=== PATIENT | female | born 1950 | race Caucasian/White ===

== ENCOUNTER → 2017-09-15 | Outpatient (CLI) | payer MEDICARE, BC | LOC: WI 13:34 | PROVIDERS: ATTEND Physician Assistant | DX: Z12.31 Encounter for screening mammogram for malignant neoplasm of breast (principal) ==

== ENCOUNTER → 2018-06-13 | Outpatient (CLI) | payer MEDICARE, BC ==
--- NOTE | 2018-06-13 13:51 | WOMENS IMAGING REPORT ---
EXAM DESCRIPTION: BONE DENSITY HIP/SPINE COMPLETED DATE/TIME: 06/13/2018 1:28 pm REASON FOR STUDY: N95.9 UNSPECIFIED MENOPAUSAL AND PERIMENOPAUSAL DISORDER N95.9 UNSPECIFIED MENOPA USAL AND PERIMENOPAUSAL DISORDER COMPARISON: None. TECHNIQUE: Dual-Energy X-ray Absorptiometry (DEXA) of the AP Spine and Hip. LIMITATIONS: None. FINDINGS: LUMBAR SPINE: The bone mineral density (BMD) measured from L1-L4 in the AP projection correlates with a T-score of 0.5, which is normal as defined by the World Health Organization. HIP: The bone mineral density (BMD) measured in the left hip correlates with a T-score of -2.1, which is o steopenia as defined by the World Health Organization. IMPRESSION: 1. LUMBAR SPINE: NORMAL. 2. HIP: OSTEOPENIA. COMMENT: Spine values are considered less accurate due to scoliosis. The World Health Organization defines low BMD as follows: T-score: Normal: Greater than -1.0 Osteopenia: Between -1.0 and -2.5 Osteoporosis: Less than -2.5 without fractures Established osteoporosis: Less than -2.5 with fractures In general, you may wish to consider: Diagnosis Treatment Follow-up DEXA Normal BMD Prevention 2-3 years Osteopenia Prevention/Therapy 1-2 years Osteoporosis Therapy Yearly TECHNICAL DOCUMENTATION: JOB ID: [id number] [employer]- All Rights Reserved Reading location - IP/workstation name: [email or web address]
== END ==
LOC: WI 12:52
PROVIDERS: ATTEND Physician Assistant
DX: M85.88 Other specified disorders of bone density and structure, other site (principal); N95.9 Unspecified menopausal and perimenopausal disorder
CPT/HCPCS: 77080

== ENCOUNTER → 2018-07-07 | Outpatient (CLI) | payer MEDICARE, BC ==
--- NOTE | 2018-07-07 12:22 | RADIOLOGY REPORT (SQ) ---
EXAM DESCRIPTION: LUMBAR SPINE COMPLETE; SACRUM AND COCCYX COMPLETED DATE/TIME: 07/07/2018 12:11 pm REASON FOR STUDY: M51.36 OTHER INTERVERTEBRAL DISC DEGENERATION; S32.10XA UNSPECIFIED FRACTUR COMPARISON: None. FINDINGS: Five views of the lumbosacral spine: Limiting stool and bowel gas partially obscuring. Scoliotic. Osteopenic. Spondylosis. No gross fracture or bone lesion. Three views of the sacrum and coccyx: Limiting osteopenia. No gross fracture or bone lesion. TECHNICAL DOCUMENTATION: JOB ID: [id number] Reading location - IP/workstation name: [email or web address]
--- NOTE | 2018-07-07 12:22 | RADIOLOGY REPORT (SQ) ---
EXAM DESCRIPTION: LUMBAR SPINE COMPLETE; SACRUM AND COCCYX COMPLETED DATE/TIME: 07/07/2018 12:11 pm REASON FOR STUDY: M51.36 OTHER INTERVERTEBRAL DISC DEGENERATION; S32.10XA UNSPECIFIED FRACTUR COMPARISON: None. FINDINGS: Five views of the lumbosacral spine: Limiting stool and bowel gas partially obscuring. Scoliotic. Osteopenic. Spondylosis. No gross fracture or bone lesion. Three views of the sacrum and coccyx: Limiting osteopenia. No gross fracture or bone lesion. TECHNICAL DOCUMENTATION: JOB ID: [id number] Reading location - IP/workstation name: [email or web address]
== END ==
LOC: OD 11:24
PROVIDERS: ATTEND Physician Assistant
DX: M51.36 Other intervertebral disc degeneration, lumbar region (principal)
CPT/HCPCS: 72110; 72220

== ENCOUNTER 2019-01-08 03:35 | Inpatient (IN) | payer MEDICARE, BC ==
--- NOTE | 2019-01-08 03:41 | ER Document Report ---
ED General - General Chief Complaint: Breathing Difficulty Stated Complaint: DIFFICUTLY BREATHING Time Seen by Provider: 01/08/19 03:40 Primary Care Provider: CHIQUI MACHUCA PA-C [ALLIED HEALTH PROFESSIONAL] - Follow up as needed TRAVEL OUTSIDE OF THE [place] IN LAST 30 DAYS: No - HPI Patient complains to provider of: SOB Notes: patient reports SOB she came by EMS and was noted to be hypoxic into mid 70's with them she is not on home oxygen but does have a h/o copd and continues to smoke she is currently on cipro and has taken 3 days of prednisone prescribed by her pcp due to worsening cough she tells me her SOB has worsened significantly over last 1-2 days no leg swelling or h/o pe or dvt no fever or chills denies chest pain - Related Data Allergies/Adverse Reactions: latex Allergy (Verified 01/08/19 04:17) Penicillins Allergy (Verified 01/08/19 04:06) Sulfa (Sulfonamide Antibiotics) Allergy (Verified 01/08/19 04:06) Past Medical History - Social History Smoking Status: Current Every Day Smoker Family History: COPD Review of Systems - Review of Systems Constitutional: No symptoms reported EENT: No symptoms reported Cardiovascular: No symptoms reported Respiratory: Cough, Short of breath, Sputum, Wheezing Gastrointestinal: No symptoms reported Genitourinary: No symptoms reported Female Genitourinary: No symptoms reported Musculoskeletal: No symptoms reported Skin: No symptoms reported Hematologic/Lymphatic: No symptoms reported Neurological/Psychological: No symptoms reported Physical Exam - Vital signs Vitals: Resp Pulse Ox 23 H 92 01/08/19 03:46 01/08/19 03:46 Interpretation: Normal - General General appearance: Alert - HEENT Head: Normocephalic, Atraumatic Eyes: Normal Pupils: PERRL Mucous membranes: Dry Neck: Supple. No: Meningismus - Respiratory Respiratory status: Tachypnea Chest status: Nontender Breath sounds: Wheezing Chest palpation: Normal - Cardiovascular Rhythm: Tachycardia Heart sounds: Normal auscultation Murmur: No Normal capillary refill: Yes - Abdominal Inspection: Normal Distension: No distension Bowel sounds: Normal Tenderness: Nontender Organomegaly: No organomegaly - Back Back: Normal, Nontender - Extremities General upper extremity: Normal inspection, Nontender, Normal color, Normal ROM, Normal temperature General lower extremity: Normal inspection, Nontender, Normal color, Normal ROM, Normal temperature, Normal weight bearing. No: Violeta's sign - Neurological Neuro grossly intact: Yes Cognition: Normal Orientation: AAOx4 [place] Coma Scale Eye Opening: Spontaneous [place] Coma Scale Verbal: Oriented [place] Coma Scale Motor: Obeys Commands [place] Coma Scale Total: 15 Speech: Normal Motor strength normal: LUE, RUE, LLE, RLE Sensory: Normal - Psychological Associated symptoms: Normal affect, Normal mood - Skin Skin Temperature: Warm Skin Moisture: Dry Skin Color: Normal Course - Re-evaluation Re-evalutation: 01/08/19 03:57 patient tachypneic and hypoxic will evaluate for PE with CTA steroids, duoneb ordered upon initial eval on 2L NC to maintain a sat >90 01/08/19 06:00 EKG w/ T wave changes but criteria not met for STEMI (only 1 lead, V2, with <2mm elevation and appears to be generated by baseline wander) -> no chest pain CXR clear wbc and lactic normal doubt respiratory infection nt-probnp elevated but no edema on cxr CTA pending given hypoxia will sign out to Dr Gilbert to follow up on CTA and have patient admitted to hospital 01/08/19 06:02 - Vital Signs Vital signs: Temp Pulse Resp BP Pulse Ox 98.2 F 18 156/78 H 91 L 01/08/19 04:07 01/08/19 05:00 01/08/19 04:00 01/08/19 05:00 - Laboratory Result Diagrams: 01/08/19 02:58 01/08/19 02:58 Laboratory results interpreted by me: 01/08/19 01/08/19 01/08/19 02:58 02:58 02:58 RDW 14.9 H Lymph % (Auto) 12.5 L Seg Neutrophils % 78.1 H ABG pO2 ABG HCO3 ABG Total CO2 Sodium 130.0 L Chloride 87 L Carbon Dioxide 33 H Lactic Acid AST 37 H NT-Pro-B Natriuret Pep 2040 H Lipase 16.5 L 01/08/19 01/08/19 05:08 05:19 RDW Lymph % (Auto) Seg Neutrophils % ABG pO2 69.4 L ABG HCO3 29.0 H ABG Total CO2 30.4 H Sodium Chloride Carbon Dioxide Lactic Acid 0.5 L AST NT-Pro-B Natriuret Pep Lipase - Diagnostic Test Radiology reviewed: Image reviewed, Reports reviewed - EKG Interpretation by Me Additional EKG results interpreted by me: 01/08/19 06:01 sinus tachycardia, rate of 104, left atrial abnormality, abnormal T waves in II, III, avF and V3 - V6 V2 with mild elevation (<2mm) Critical Care Note - Critical Care Note Total time excluding time spent on procedures (mins): 36 Comments: hypoxic respiratory failure requiring nasal cannula supplementation and evaluation for pna, acs, PE. At risk for decompensation requiring advanced airway intervention Discharge - Discharge Clinical Impression: Hypoxia, Elevated blood pressure reading COPD (chronic obstructive pulmonary disease) Qualifiers: COPD type: COPD with acute exacerbation Qualified Code(s): J44.1 - Chronic obstructive pulmonary disease with (acute) exacerbation Condition: Stable Disposition: ADMITTED INPATIENT Admitting Provider: hospitalist Unit Admitted: IMCU Referrals: CHIQUI MACHUCA PA-C [ALLIED HEALTH PROFESSIONAL] - Follow up as needed
[2019-01-08] MEDS ORDERED: IPRATROPIUM/ALBUTEROL 0.5-2.5 MG/3 ML AMPUL NEB ONE (03:52)
[2019-01-08] MEDS ORDERED: METHYLPREDNISOLONE INJ 125 MG/2 ML SDV IV ONE (03:53)
[2019-01-08 04:05] LABS: ABSOLUTE LYMPHOCYTES (AUTO) 0.7 10^3/uL (0.5-4.7); HEMATOCRIT 44.6 % (36.0-47.0); MEAN CORPUSCULAR VOLUME 95 fl (80-97); RED BLOOD COUNT 4.68 10^6/uL (3.72-5.28); RED CELL DISTRIBUTION WIDTH 14.9 % (11.5-14.0); TOTAL CELLS COUNTED % (AUTO) 100 %
[2019-01-08 04:09] LABS: ABSOLUTE MONOCYTES (AUTO) 0.4 10^3/uL (0.1-1.4); ABSOLUTE NEUT (AUTO) 4.2 10^3/uL (1.7-8.2); BASOPHILS % (AUTO) 0.6 % (0-2); EOSINOPHILS % (AUTO) 0.9 % (0-6); HEMOGLOBIN 14.9 g/dL (12.0-15.5); LYMPHOCYTES % (AUTO) 12.5 % (13-45); MEAN CORPUSCULAR HEMOGLOBIN 31.8 pg (27.0-33.4); MEAN CORPUSCULAR HGB CONC 33.3 g/dL (32.0-36.0); MONOCYTES % (AUTO) 7.9 % (3-13); PLATELET COUNT 275 10^3/uL (150-450); SEGMENTED NEUTROPHILS % (AUTO) 78.1 % (42-78); WHITE BLOOD COUNT 5.4 10^3/uL (4.0-10.5)
[2019-01-08 04:22] LABS: ALBUMIN 4.4 g/dL (3.5-5.0); ALKALINE PHOSPHATASE 62 U/L (38-126); ANION GAP 10 (5-19); ASPARTATE AMINO TRANSFERASE 37 U/L (14-36); BILIRUBIN,DIRECT 0.3 mg/dL (0.0-0.4); BILIRUBIN,TOTAL 0.3 mg/dL (0.2-1.3); BLOOD UREA NITROGEN 11 mg/dL (7-20); CALCIUM 9.7 mg/dL (8.4-10.2); CARBON DIOXIDE 33 mmol/L (22-30); CHLORIDE 87 mmol/L (98-107); GLUCOSE 95 mg/dL (75-110); POTASSIUM 4.3 mmol/L (3.6-5.0); TOTAL PROTEIN 7.1 g/dL (6.3-8.2)
[2019-01-08 04:34] LABS: TROPONIN I 0.017 ng/mL
--- NOTE | 2019-01-08 04:42 | RADIOLOGY REPORT (SQ) ---
CLINICAL HISTORY: cough COMPARISON: None. TECHNIQUE: XR CHEST 1 VIEW 01/08/2019 12:00 AM CDT FINDINGS: Cardiac silhouette is normal in size. Lungs are clear without consolidation, atelectasis, mass or edema. There is no pleural effusion. There is no pneumothorax. There are no acute osseous findings. There are surgical clips in right axilla. IMPRESSION: Clear lungs.
[2019-01-08 05:22] LABS: ARTERIAL BLOOD BASE EXCESS 3.9 mmol/L; ARTERIAL BLOOD H2CO3 1.35 mmol/L (1.05-1.35); ARTERIAL BLOOD O2 SATURATION 94.2 % (94-98); ARTERIAL BLOOD PH 7.43 (7.35-7.45); ARTERIAL BLOOD PO2 69.4 mmHg (80-100); ARTERIAL BLOOD TOTAL CO2 30.4 mmol/L (21-25)
[2019-01-08 05:23] LABS: ARTERIAL BLOOD FIO2 RA
--- NOTE | 2019-01-08 07:05 | RADIOLOGY REPORT (SQ) ---
EXAM: CT chest angiography with intravenous contrast CLINICAL DATA: 68-year-old female, hypoxic. TECHNICAL DATA: Following the administration of intravenous contrast, multiple high-resolution axial images of the chest were performed followed by sagittal and coronal reconstructed images. Coronal oblique MIP images were also performed. The CT study is performed according to ALARA (as low as reasonably achievable) or ALARA/IMAGE GENTLY, with automatic adjustment of mA and/or kV according to patient size. Performed on: 01/08/2019 at 6:08 AM COMPARISONS: None FINDINGS: There is satisfactory visualization and contrast opacification of pulmonary arteries. No definite intra-arterial filling defects are identified to suggest acute or chronic pulmonary embolism. The thoracic aorta is normal in caliber and contour without evidence of aneurysm or dissection. There are atherosclerotic calcifications along the thoracic aorta and to a lesser degree the coronary arteries. The lungs are well expanded. There is chronic fibrosis within the anterior inferior right upper lobe and anterior right middle lobe likely related to prior radiation. There is a small parenchymal opacity in the posterior right lower lobe and minimal parenchymal opacification in the anterior left upper lobe which may be related to additional fibrosis. The lungs are otherwise grossly clear. There are no pleural effusions. There is no pneumothorax. The patient is status post right mastectomy. There are surgical clips in the right axilla. There is a coarse calcification along the anterolateral aspect of the right 4th rib. There is very mild deformity of the anterolateral right 3rd rib. The heart is normal in size. There is no pericardial effusion. There is a prominent precarinal lymph node measuring approximately 2.4 x 1.2 cm in cross-sectional diameter. Otherwise, no significant lymphadenopathy is identified. No acute osseous abnormality is identified. There are mild degenerative changes along the thoracic spine. The visualized upper abdominal structures reveal decreased attenuation of the liver which can be seen with fatty infiltration. There is a coarse calcification within the dome of the liver. There is scoliosis of the thoracolumbar spine. IMPRESSION: 1. No CT evidence to suggest acute or chronic pulmonary embolism, aortic aneurysm or aortic dissection. 2. Remote right mastectomy with fibrotic changes in the lungs as described above. 3. Prominent nonspecific precarinal lymph node measuring approximately 2.4 x 1.2 cm in cross-sectional diameter.
--- NOTE | 2019-01-08 07:40 | ER Document Report ---
ED Respiratory Problem - General Chief Complaint: Shortness Of Breath Stated Complaint: DIFFICUTLY BREATHING Time Seen by Provider: 01/08/19 03:40 Primary Care Provider: CHIQUI MACHUCA PA-C [ALLIED HEALTH PROFESSIONAL] - Follow up as needed Notes: Pt signed out to me at shift change by Dr Carney --elderly female COPD. Patient has been on Cipro and prednisone by primary care for the last 3 to 4 days and has not been getting any better. Cold-like symptoms. TRAVEL OUTSIDE OF THE [place] IN LAST 30 DAYS: No - Related Data Allergies/Adverse Reactions: latex Allergy (Verified 01/08/19 04:17) Penicillins Allergy (Verified 01/08/19 04:06) Sulfa (Sulfonamide Antibiotics) Allergy (Verified 01/08/19 04:06) Past Medical History - Social History Smoking Status: Current Every Day Smoker Family History: COPD Patient has suicidal ideation: No Patient has homicidal ideation: No Past Surgical History: Reports: Hx Breast Surgery - right mastectomy Physical Exam - Vital signs Vitals: Resp Pulse Ox 23 H 92 01/08/19 03:46 01/08/19 03:46 - Notes Notes: Repeat exam ointment in the beginning of my shift frail elderly female still has some wheezing present. Not using accessory muscle use is at this time Course - Re-evaluation Re-evalutation: 01/08/19 07:38 Patient was signed out to me at shift change pending CTA. CTA is negative for pulmonary embolism. The patient is not on home oxygen. But requires 3 L of oxygen to maintain sats above 90. The patient is failed outpatient treatment she has had Cipro and prednisone by primary care but is continued to get worse. Tachycardia has nearly resolved. She is doing better however she still has oxygen requirement will require hospitalization for continued aerosol treatment steroids and pulmonary toilet. EKG has what I believe is chronic T wave inversion but I do not have an old EKG immediately available for comparison. There is likely some global demand ischemic findings due to the patient's sats in the 70s due to COPD exacerbation. I spoke with the hospitalist service to hospitalize the patient for further care. - Vital Signs Vital signs: Temp Pulse Resp BP Pulse Ox 98.2 F 21 H 161/78 H 94 01/08/19 04:07 01/08/19 07:15 01/08/19 06:26 01/08/19 06:26 - Laboratory Result Diagrams: 01/08/19 02:58 01/08/19 02:58 Laboratory results interpreted by me: 01/08/19 01/08/19 01/08/19 02:58 02:58 02:58 RDW 14.9 H Lymph % (Auto) 12.5 L Seg Neutrophils % 78.1 H ABG pO2 ABG HCO3 ABG Total CO2 Sodium 130.0 L Chloride 87 L Carbon Dioxide 33 H Lactic Acid AST 37 H NT-Pro-B Natriuret Pep 2040 H Lipase 16.5 L 01/08/19 01/08/19 05:08 05:19 RDW Lymph % (Auto) Seg Neutrophils % ABG pO2 69.4 L ABG HCO3 29.0 H ABG Total CO2 30.4 H Sodium Chloride Carbon Dioxide Lactic Acid 0.5 L AST NT-Pro-B Natriuret Pep Lipase Critical Care Note - Critical Care Note Total time excluding time spent on procedures (mins): 31 Discharge - Discharge Clinical Impression: Hypoxia, Elevated blood pressure reading COPD (chronic obstructive pulmonary disease) Qualifiers: COPD type: COPD with acute exacerbation Qualified Code(s): J44.1 - Chronic obstructive pulmonary disease with (acute) exacerbation Condition: Stable Disposition: ADMITTED INPATIENT Admitting Provider: Christos (Hospitalist) Unit Admitted: Telemetry Referrals: CHIQUI MACHUCA PA-C [ALLIED HEALTH PROFESSIONAL] - Follow up as needed
[2019-01-08] MEDS ORDERED: ACETAMINOPHEN 325 MG TABLET PO PRN (08:51)
[2019-01-08] MEDS ORDERED: OXYCODONE-ACETAMINOPHEN 5-325 MG TABLET PO PRN (08:51)
[2019-01-08] MEDS ORDERED: ONDANSETRON 4 MG TAB.RAPDIS PO PRN (08:51)
[2019-01-08] MEDS ORDERED: MAG HYDROX/AL HYDROX/SIMETH SUSP 30 ML UDCUP PO PRN (08:51)
[2019-01-08] MEDS ORDERED: ONDANSETRON HCL INJ/PF 4 MG/2 ML SDV IV PRN (08:51)
[2019-01-08] MEDS ORDERED: ZOLPIDEM TARTRATE 5 MG TABLET PO PRN (08:51)
[2019-01-08] MEDS: ENOXAPARIN SODIUM INJ 40 MG/0.4 ML DISP.SYRIN SUBCUT SCH (10:16)
[2019-01-08] MEDS: FAMOTIDINE 20 MG TABLET PO SCH ×2 (10:19→23:31)
[2019-01-08] MEDS ORDERED: CYCLOBENZAPRINE HCL 10 MG TABLET PO PRN (15:29)
[2019-01-08] MEDS ORDERED: ALBUTEROL SULFATE HFA (90 MCG/PUFF) 200 PUFF/8.5 GM MDI IH PRN (15:29)
[2019-01-08] MEDS: NAPROXEN 250 MG TABLET PO SCH (17:34)
[2019-01-08] MEDS: GABAPENTIN 300 MG CAPSULE PO SCH (17:35)
[2019-01-08] MEDS: LORAZEPAM 0.5 MG TABLET PO SCH ×2 (17:36→23:22)
[2019-01-08] MEDS: OXYCODONE-ACETAMINOPHEN 5-325 MG TABLET PO SCH ×2 (17:36→23:33)
[2019-01-08] MEDS: OXYCODONE HCL IR 5 MG TABLET PO SCH ×2 (17:37→23:32)
--- NOTE | 2019-01-08 17:56 | PDOC H&P ---
History of Present Illness Admission Date/PCP: 01/08/19 07:52 BAKARI LOMAS PA-C History of Present Illness: JOLIE GARCIA is a 68 year old female was admitted through the emergency r oom for shortness of breath. Patient states that she has had COPD for about 2 years and continues to smoke cigarettes, anywhere from a half a pack to a pack per day. Daughter tells me she has been taking pain medications now for many years, for chronic back pain. Recently in the last week to 10 days she was put on Cipro for sinus infection. She says that for the last few days she has been more short of breath. About 20 years ago she was diagnosed with breast cancer and had a right mastectomy.. Patient states she is a "DNR" Is now admitted for COPD exacerbation Past Medical History Pulmonary Medical History: Reports: Chronic Obstructive Pulmonary Disease (COPD) Malignancy Medical History: Reports: Breast Cancer Past Surgical History Past Surgical History: Reports: Mastectomy - Right Social History Smoking Status: Unknown if Ever Smoked Family History Family History: COPD Parental Family History Reviewed: No Children Family History Reviewed: No Sibling(s) Family History Reviewed.: No Medication/Allergy Home Medications: Albuterol Sulfate [Proair Hfa Inhalation Aerosol 8.5 gm Mdi] 2 puff IH Q4 PRN 01/08/19 Budesonide/Formoterol Fumarate [Symbicort Hfa 160-4.5 Mcg Inhaler 6 gm] 1 puff IH Q12 01/08/19 Ciprofloxacin HCl [Cipro 500 mg Tablet] 500 mg PO BID 01/08/19 Cyclobenzaprine HCl [Flexeril 10 mg Tablet] 10 mg PO TIDP PRN 01/08/19 Gabapentin [Neurontin 300 mg Capsule] 300 mg PO QAM 01/08/19 Gabapentin [Neurontin 300 mg Capsule] 600 mg PO QPM 01/08/19 Levothyroxine Sodium [Synthroid 0.088 mg Tablet] 88 mcg PO DAILY 01/08/19 Lisinopril [Prinivil] 20 mg PO DAILY 01/08/19 Lorazepam [Ativan 0.5 mg Tablet] 0.5 mg PO QID 01/08/19 Naproxen 500 mg PO BID 01/08/19 Omeprazole 20 mg PO DAILY 01/08/19 Oxycodone HCl/Acetaminophen [Percocet 10-325 Mg Tablet] 1 each PO QID 01/08/19 Pravastatin Sodium [Pravachol] 80 mg PO DAILY 01/08/19 Trazodone HCl [Desyrel 50 mg Tablet] 50 mg PO QHS 01/08/19 Valacyclovir HCl [Valacyclovir] 1,000 mg PO Q12 01/08/19 Allergies/Adverse Reactions: latex Allergy (Verified 01/08/19 04:17) Penicillins Allergy (Verified 01/08/19 04:06) Sulfa (Sulfonamide Antibiotics) Allergy (Verified 01/08/19 04:06) Review of Systems Constitutional: ABSENT: chills, fever(s), headache(s), weight gain, weight loss Respiratory: PRESENT: dyspnea Gastrointestinal: ABSENT: abdominal pain, constipation, diarrhea, hematemesis, hematochezia, nausea, vomiting Neurological: ABSENT: abnormal gait, abnormal speech, confusion, dizziness, focal weakness, syncope Psychiatric: ABSENT: anxiety, depression, homidical ideation, suicidal ideation Physical Exam Vital Signs: Temp Pulse Resp BP Pulse Ox 99.2 F 120 H 16 149/89 H 97 01/08/19 15:09 01/08/19 15:09 01/08/19 15:09 01/08/19 15:09 01/08/19 15:09 Intake & Output 01/07/19 01/08/19 01/09/19 06:59 06:59 06:59 Intake Total 440 Output Total 1500 Balance -1060 Weight 50.3 kg 50.3 kg General appearance: PRESENT: no acute distress Respiratory exam: PRESENT: rales, wheezes Cardiovascular exam: PRESENT: RRR. ABSENT: diastolic murmur, rubs, systolic murmur Neurological exam: PRESENT: alert, awake, oriented to person, oriented to place, oriented to time, oriented to situation, CN II-XII grossly intact. ABSENT: motor sensory deficit Psychiatric exam: PRESENT: appropriate affect, normal mood. ABSENT: homicidal ideation, suicidal ideation Results Laboratory Results: 01/08/19 02:58 01/08/19 02:58 01/08/19 01/08/19 01/08/19 02:58 02:58 02:58 WBC 5.4 RBC 4.68 Hgb 14.9 Hct 44.6 MCV 95 MCH 31.8 MCHC 33.3 RDW 14.9 H Plt Count 275 Seg Neutrophils % 78.1 H Carbonic Acid HCO3/H2CO3 Ratio ABG pH ABG pCO2 ABG pO2 ABG HCO3 ABG O2 Saturation ABG Base Excess FiO2 Sodium 130.0 L Potassium 4.3 Chloride 87 L Carbon Dioxide 33 H Anion Gap 10 BUN 11 Creatinine 0.60 Est GFR ( Amer) > 60 Glucose 95 Lactic Acid Calcium 9.7 Total Bilirubin 0.3 AST 37 H Alkaline Phosphatase 62 Total Protein 7.1 Albumin 4.4 Lipase 16.5 L Free T4 1.50 01/08/19 01/08/19 05:08 05:19 WBC RBC Hgb Hct MCV MCH MCHC RDW Plt Count Seg Neutrophils % Carbonic Acid 1.35 HCO3/H2CO3 Ratio 21:1 ABG pH 7.43 ABG pCO2 45.0 ABG pO2 69.4 L ABG HCO3 29.0 H ABG O2 Saturation 94.2 ABG Base Excess 3.9 FiO2 RA Sodium Potassium Chloride Carbon Dioxide Anion Gap BUN Creatinine Est GFR ( Amer) Glucose Lactic Acid 0.5 L Calcium Total Bilirubin AST Alkaline Phosphatase Total Protein Albumin Lipase Free T4 01/08/19 01/08/19 02:58 06:37 Troponin I 0.017 0.016 NT-Pro-B Natriuret Pep 2040 H Impressions: Chest X-Ray 01/08/19 00:00 IMPRESSION: Clear lungs. Chest/Abdomen CTA 01/08/19 00:00 IMPRESSION: 1. No CT evidence to suggest acute or chronic pulmonary embolism, aortic aneurysm or aortic dissection. 2. Remote right mastectomy with fibrotic changes in the lungs as described above. 3. Prominent nonspecific precarinal lymph node measuring approximately 2.4 x 1.2 cm in cross-sectional diameter. Assessment and Plan - Diagnosis (1) Breast cancer Is this a current diagnosis for this admission?: Yes Plan: Patient had a right mastectomy in 1994 (2) Tobacco abuse Is this a current diagnosis for this admission?: Yes Plan: Patient smokes anywhere from a half a pack to a pack of cigarettes per day (3) Chronic pain Is this a current diagnosis for this admission?: Yes Plan: Patient has been on chronic pain medication for over 20 years for back pain. (4) COPD (chronic obstructive pulmonary disease) Qualifiers: COPD type: COPD with acute exacerbation Qualified Code(s): J44.1 - Chronic obstructive pulmonary disease with (acute) exacerbation Is this a current diagnosis for this admission?: Yes Plan: Patient will be placed on IV steroids as well as IV antibiotics, pulmonary toiletry as well. (5) Elevated blood pressure reading Is this a current diagnosis for this admission?: Yes Plan: Admission blood pressure 167/83 it is come down now to 149/89 ,patient is on Prinivil 20 mg daily (6) Hypoxia Is this a current diagnosis for this admission?: Yes Plan: Patient is on 4 L nasal cannula O2 sat 97%. Patient does not appear to be in respiratory distress - Plan Summary Summary: Give patient IV steroids every 8 hours give patient IV antibiotics and try to improve her COPD exacerbation. - Time Time Spent with patient: 35 or more minutes
--- NOTE | 2019-01-08 17:58 | EKG REPORT ---
SEVERITY:- ABNORMAL ECG - SINUS TACHYCARDIA LEFT ATRIAL ABNORMALITY ABNORMAL T, CONSIDER ISCHEMIA, DIFFUSE LEADS : Confirmed by: Farzaneh Fischer 08-Jan-2019 17:57:57
[2019-01-08] MEDS ORDERED: (PENDING PHARMACY ID) (Oxycodone Hcl/Acetaminophen [Percocet 10-325 Mg Tablet] 1 EACH) PO SCH (18:00)
[2019-01-08] MEDS ORDERED: (PENDING PHARMACY ID) (Naproxen [Naproxen] 500 MG) PO SCH (18:00)
[2019-01-08] MEDS: AZITHROMYCIN 500 MG in DEXTROSE 5%-WATER 250 ML IV SCH (21:39)
[2019-01-08] MEDS ORDERED: (PENDING PHARMACY ID) (Valacyclovir Hcl [Valacyclovir] 1,000 MG) PO SCH (22:00)
[2019-01-08] MEDS ORDERED: (PENDING PHARMACY ID) (Budesonide/Formoterol Fumarate 1 PUFF) IH SCH (22:00)
[2019-01-08] MEDS: METHYLPREDNISOLONE INJ 40 MG/1 ML SDV IV SCH (23:29)
[2019-01-08] MEDS: ATORVASTATIN CALCIUM 20 MG TABLET PO SCH (23:30)
[2019-01-08] MEDS: VALACYCLOVIR HCL 500 MG TABLET PO SCH (23:30)
[2019-01-08] MEDS: TRAZODONE HCL 50 MG TABLET PO SCH (23:31)
--- NOTE | 2019-01-09 00:43 | RADIOLOGY REPORT (SQ) ---
EXAM: CT head without IV contrast CLINICAL DATA: hypoxia, confusion TECHNICAL DATA: Multiple axial CT images of the brain were performed followed by sagittal and coronal reconstructed images. The CT study is performed according to ALARA (as low as reasonably achievable) or ALARA/IMAGE GENTLY, with automatic adjustment of mA and/or kV according to patient size. Performed on: 01/08/2019 at 8:28 PM Comparisons: None. FINDINGS: There is no evidence of mass, acute mass effect or midline shift. There are no acute extra-axial fluid collections. There is no evidence of acute intracranial hemorrhage. The cerebral sulci and ventricles are prominent consistent with mild cerebral volume loss. There are scattered areas of decreased attenuation within the subcortical and periventricular white matter most likely due to mild chronic microangiopathy. There is no significant mucosal thickening of the paranasal sinuses. The mastoid air cells are clear. The orbital contents are grossly unremarkable. No acute osseous abnormalities are identified. No focal soft tissue abnormalities are identified. IMPRESSION: 1. There is no evidence of acute intracranial pathology. 2. Mild cerebral volume loss with findings compatible with mild chronic microangiopathy.
[2019-01-09] MEDS: METHYLPREDNISOLONE INJ 40 MG/1 ML SDV IV SCH ×3 (06:27→21:42)
[2019-01-09] MEDS: OXYCODONE-ACETAMINOPHEN 5-325 MG TABLET PO SCH ×4 (06:27→23:56)
[2019-01-09] MEDS: OXYCODONE HCL IR 5 MG TABLET PO SCH ×4 (06:28→23:57)
[2019-01-09 07:49] LABS: HEMATOCRIT 45.8 % (36.0-47.0); HEMOGLOBIN 14.9 g/dL (12.0-15.5); MEAN CORPUSCULAR HGB CONC 32.6 g/dL (32.0-36.0); MEAN CORPUSCULAR VOLUME 95 fl (80-97); PLATELET COUNT 262 10^3/uL (150-450); RED BLOOD COUNT 4.82 10^6/uL (3.72-5.28); RED CELL DISTRIBUTION WIDTH 15.2 % (11.5-14.0)
[2019-01-09 08:11] LABS: ABSOLUTE LYMPHOCYTES# (MANUAL) 0.6 10^3/uL (0.5-4.7); ABSOLUTE MONOCYTES # (MANUAL) 0.3 10^3/uL (0.1-1.4); BASOPHILS % (MANUAL) 0 % (0-2); EOSINOPHILS % (MANUAL) 0 % (0-6); LYMPHOCYTES % (MANUAL) 10 % (13-45); MONOCYTES % (MANUAL) 5 % (3-13); SEGMENTED NEUTROPHILS % (MAN) 85 % (42-78); TOTAL CELLS COUNTED 100
[2019-01-09 08:12] LABS: ANISOCYTOSIS SLIGHT; PLATELET COMMENT ADEQUATE; PLATELET LARGE PRESENT
[2019-01-09 08:14] LABS: OVALOCYTES SLIGHT
[2019-01-09] MEDS: IPRATROPIUM/ALBUTEROL 0.5-2.5 MG/3 ML AMPUL NEB PRN ×3 (08:22→21:14)
[2019-01-09] MEDS: LEVOTHYROXINE SODIUM 0.088 MG TABLET PO SCH (09:52)
[2019-01-09] MEDS: VALACYCLOVIR HCL 500 MG TABLET PO SCH ×2 (09:52→21:39)
[2019-01-09] MEDS: GABAPENTIN 300 MG CAPSULE PO SCH ×2 (09:52→17:44)
[2019-01-09] MEDS: FAMOTIDINE 20 MG TABLET PO SCH ×2 (09:52→21:39)
[2019-01-09] MEDS: NAPROXEN 250 MG TABLET PO SCH ×2 (09:52→17:44)
[2019-01-09] MEDS: LISINOPRIL 10 MG TABLET PO SCH (09:52)
[2019-01-09] MEDS: FLUTICASONE/VILANTEROL 200-25 MCG/DOSE IH SCH (09:53)
[2019-01-09] MEDS: LORAZEPAM 0.5 MG TABLET PO SCH ×4 (09:54→21:40)
[2019-01-09] MEDS: ENOXAPARIN SODIUM INJ 40 MG/0.4 ML DISP.SYRIN SUBCUT SCH (09:54)
--- NOTE | 2019-01-09 09:58 | PDOC PROGRESS REPORT ---
Subjective Progress Note for:: 01/09/19 Subjective:: 01/09/2019 68-year-old female who was admitted yesterday through the emergency room for COPD exacerbation. No obvious evidence of pneumonia on CT scan of the chest. Nodule appears to be old according to the patient. Patient will be treated with nebulizers steroids and pulmonary toiletry. Also prophylactic antibiotics Reason For Visit: COPDE EXACERBATION,TOBACCO ABUSE,HYPOTHYRODISM Physical Exam Vital Signs: Temp Pulse Resp BP Pulse Ox 98.4 F 91 16 159/84 H 92 01/09/19 07:58 01/09/19 08:22 01/09/19 08:22 01/09/19 07:58 01/09/19 08:22 Intake & Output 01/08/19 01/09/19 01/10/19 06:59 06:59 06:59 Intake Total 1290 Output Total 1700 Balance -410 Weight 50.3 kg 51.2 kg General appearance: PRESENT: no acute distress, other - Acute in full sentences in no respiratory distress today Respiratory exam: PRESENT: crackles - Both bases, rales Cardiovascular exam: PRESENT: RRR. ABSENT: diastolic murmur, rubs, systolic murmur Neurological exam: PRESENT: alert, awake, oriented to person, oriented to place, oriented to time, oriented to situation, CN II-XII grossly intact, other - Patient fully alert no evidence of dementia. ABSENT: motor sensory deficit Psychiatric exam: PRESENT: appropriate affect, normal mood. ABSENT: homicidal ideation, suicidal ideation Results Laboratory Results: 01/09/19 07:05 01/08/19 01/09/19 02:58 07:05 WBC 6.0 RBC 4.82 Hgb 14.9 Hct 45.8 MCV 95 MCH 31.0 MCHC 32.6 RDW 15.2 H Plt Count 262 Seg Neutrophils % Not Reportable Free T4 1.50 01/08/19 01/08/19 02:58 06:37 Troponin I 0.017 0.016 NT-Pro-B Natriuret Pep 2040 H Impressions: Chest X-Ray 01/08/19 00:00 IMPRESSION: Clear lungs. Chest/Abdomen CTA 01/08/19 00:00 IMPRESSION: 1. No CT evidence to suggest acute or chronic pulmonary embolism, aortic aneurysm or aortic dissection. 2. Remote right mastectomy with fibrotic changes in the lungs as described above. 3. Prominent nonspecific precarinal lymph node measuring approximately 2.4 x 1.2 cm in cross-sectional diameter. Head CT 01/08/19 00:00 IMPRESSION: 1. There is no evidence of acute intracranial pathology. 2. Mild cerebral volume loss with findings compatible with mild chronic microangiopathy. Assessment and Plan - Diagnosis (1) Breast cancer Is this a current diagnosis for this admission?: Yes Plan: Patient had a right mastectomy in 199401/09/2019 states she was told that she does have a pulmonary nodule secondary to her mastectomy secondary to radiation (2) Tobacco abuse Is this a current diagnosis for this admission?: Yes Plan: Patient smokes anywhere from a half a pack to a pack of cigarettes per day 01/09/2019 requested a NicoDerm patch we will start her on 14 mg daily Daughter states patient smokes more than half a pack per day (3) Chronic pain Is this a current diagnosis for this admission?: Yes Plan: Patient has been on chronic pain medication for over 20 years for back pain. 01/09/2019 patient does not complain of any pain today (4) COPD (chronic obstructive pulmonary disease) Qualifiers: COPD type: COPD with acute exacerbation Qualified Code(s): J44.1 - Chronic obstructive pulmonary disease with (acute) exacerbation Is this a current diagnosis for this admission?: Yes Plan: Patient will be placed on IV steroids as well as IV antibiotics, pulmonary toiletry as well. 01/09/2019 patient is using her nebulizer treatments every 4 hours as needed. She is stable no better no worse (5) Elevated blood pressure reading Is this a current diagnosis for this admission?: Yes Plan: Admission blood pressure 167/83 it is come down now to 149/89 ,patient is on Prinivil 20 mg daily. 01/09/2019 blood pressure this morning 159/84, will probably need to add another medication (6) Hypoxia Is this a current diagnosis for this admission?: Yes Plan: Patient is on 4 L nasal cannula O2 sat 97%. Patient does not appear to be in respiratory distress 01/09/2019 saturations are running in the high 90s on 4 L nasal cannula and will try to decrease this over the next several days - Plan Summary Summary: Give patient IV steroids every 8 hours give patient IV antibiotics and try to improve her COPD exacerbation. 01/09/2019 we will order the NicoDerm patch and MiraLAX every night per patient's request. Patient's daughter/caregiver slip in the room last night - Time Time Spent with patient: 25-34 minutes
[2019-01-09] MEDS ORDERED: (PENDING PHARMACY ID) (Lisinopril [Prinivil] 20 MG) PO SCH (10:00)
[2019-01-09] MEDS: NICOTINE 14 MG/24 HR PATCH.TD24 TD SCH (10:34)
[2019-01-09 14:18] LABS: CALCIUM 9.3 mg/dL (8.4-10.2)
[2019-01-09 14:19] LABS: ANION GAP 8 (5-19); BLOOD UREA NITROGEN 14 mg/dL (7-20); CARBON DIOXIDE 33 mmol/L (22-30); CHLORIDE 88 mmol/L (98-107); GLUCOSE 92 mg/dL (75-110); POTASSIUM 4.3 mmol/L (3.6-5.0)
[2019-01-09] MEDS: AZITHROMYCIN 500 MG in DEXTROSE 5%-WATER 250 ML IV SCH (17:44)
[2019-01-09] MEDS: POLYETHYLENE GLYCOL 3350 POWDER 17 GM/1 PACKET PO SCH (21:39)
[2019-01-09] MEDS: TRAZODONE HCL 50 MG TABLET PO SCH (21:40)
[2019-01-09] MEDS: ATORVASTATIN CALCIUM 20 MG TABLET PO SCH (21:40)
[2019-01-10] MEDS: IPRATROPIUM/ALBUTEROL 0.5-2.5 MG/3 ML AMPUL NEB PRN ×4 (01:46→19:42)
[2019-01-10] MEDS: METHYLPREDNISOLONE INJ 40 MG/1 ML SDV IV SCH ×3 (05:45→21:27)
[2019-01-10] MEDS: OXYCODONE-ACETAMINOPHEN 5-325 MG TABLET PO SCH ×3 (05:46→17:38)
[2019-01-10] MEDS: OXYCODONE HCL IR 5 MG TABLET PO SCH ×3 (05:46→17:30)
[2019-01-10] MEDS: LEVOTHYROXINE SODIUM 0.088 MG TABLET PO SCH (09:53)
[2019-01-10] MEDS: GABAPENTIN 300 MG CAPSULE PO SCH ×2 (09:53→17:38)
[2019-01-10] MEDS: FAMOTIDINE 20 MG TABLET PO SCH ×2 (09:53→21:28)
[2019-01-10] MEDS: NICOTINE 14 MG/24 HR PATCH.TD24 TD SCH (09:53)
[2019-01-10] MEDS: LISINOPRIL 10 MG TABLET PO SCH (09:53)
[2019-01-10] MEDS: LORAZEPAM 0.5 MG TABLET PO SCH ×4 (09:53→21:28)
[2019-01-10] MEDS: VALACYCLOVIR HCL 500 MG TABLET PO SCH ×2 (09:53→21:28)
[2019-01-10] MEDS: ENOXAPARIN SODIUM INJ 40 MG/0.4 ML DISP.SYRIN SUBCUT SCH (09:55)
[2019-01-10] MEDS: FLUTICASONE/VILANTEROL 200-25 MCG/DOSE IH SCH (09:56)
[2019-01-10] MEDS: NAPROXEN 250 MG TABLET PO SCH ×2 (09:56→18:00)
--- NOTE | 2019-01-10 13:25 | PDOC PROGRESS REPORT ---
Subjective Progress Note for:: 01/10/19 Subjective:: 01/09/2019 68-year-old female who was admitted yesterday through the emergency room for COPD exacerbation. No obvious evidence of pneumonia on CT scan of the chest. Nodule appears to be old according to the patient. Patient will be treated with nebulizers steroids and pulmonary toiletry. Also prophylactic antibiotics 01/10/2019 Patient states she is feeling much better less shortness of breath. Daughter in the room admits that she feels like her mother has improved since admission Reason For Visit: COPDE EXACERBATION,TOBACCO ABUSE,HYPOTHYRODISM Physical Exam Vital Signs: Temp Pulse Resp BP Pulse Ox 98.1 F 118 H 18 175/92 H 99 01/10/19 12:16 01/10/19 12:16 01/10/19 06:52 01/10/19 12:16 01/10/19 12:16 Intake & Output 01/09/19 01/10/19 01/11/19 06:59 06:59 06:59 Intake Total 1290 1982 Output Total 1700 Balance -410 1982 Weight 51.2 kg 51.7 kg General appearance: PRESENT: no acute distress Respiratory exam: PRESENT: rales, other - Both bases Cardiovascular exam: PRESENT: RRR. ABSENT: diastolic murmur, rubs, systolic murmur Neurological exam: PRESENT: alert, awake, oriented to person, oriented to place, oriented to time, oriented to situation, CN II-XII grossly intact. ABSENT: motor sensory deficit Psychiatric exam: PRESENT: appropriate affect, normal mood, other - Normal affect. ABSENT: homicidal ideation, suicidal ideation Results Laboratory Results: 01/09/19 07:05 01/09/19 11:52 01/09/19 11:52 Sodium 128.6 L Potassium 4.3 Chloride 88 L Carbon Dioxide 33 H Anion Gap 8 BUN 14 Creatinine 0.53 Est GFR ( Amer) > 60 Glucose 92 Calcium 9.3 01/08/19 01/08/19 02:58 06:37 Troponin I 0.017 0.016 NT-Pro-B Natriuret Pep 2040 H Impressions: Chest X-Ray 01/08/19 00:00 IMPRESSION: Clear lungs. Chest/Abdomen CTA 01/08/19 00:00 IMPRESSION: 1. No CT evidence to suggest acute or chronic pulmonary embolism, aortic aneurysm or aortic dissection. 2. Remote right mastectomy with fibrotic changes in the lungs as described above. 3. Prominent nonspecific precarinal lymph node measuring approximately 2.4 x 1.2 cm in cross-sectional diameter. Head CT 01/08/19 00:00 IMPRESSION: 1. There is no evidence of acute intracranial pathology. 2. Mild cerebral volume loss with findings compatible with mild chronic microangiopathy. Assessment and Plan - Diagnosis (1) Breast cancer Is this a current diagnosis for this admission?: Yes (2) Tobacco abuse Is this a current diagnosis for this admission?: Yes (3) Chronic pain Is this a current diagnosis for this admission?: Yes (4) COPD (chronic obstructive pulmonary disease) Qualifiers: COPD type: COPD with acute exacerbation Qualified Code(s): J44.1 - Chronic obstructive pulmonary disease with (acute) exacerbation Is this a current diagnosis for this admission?: Yes (5) Elevated blood pressure reading Is this a current diagnosis for this admission?: Yes (6) Hypoxia Is this a current diagnosis for this admission?: Yes - Plan Summary Summary: Give patient IV steroids every 8 hours give patient IV antibiotics and try to improve her COPD exacerbation. 01/09/2019 we will order the NicoDerm patch and MiraLAX every night per patient's request. Patient's daughter/caregiver slip in the room last night 01/10/2019 Will walk patient without oxygen to see if she qualifies for home O2. Continue IV steroids and IV antibiotics. IV Zithromax and 40 mg Solu-Medrol every 8 hours - Time Time Spent with patient: 25-34 minutes
[2019-01-10] MEDS: AZITHROMYCIN 500 MG in DEXTROSE 5%-WATER 250 ML IV SCH (17:39)
[2019-01-10] MEDS: ATORVASTATIN CALCIUM 20 MG TABLET PO SCH (21:28)
[2019-01-10] MEDS: TRAZODONE HCL 50 MG TABLET PO SCH (21:28)
[2019-01-10] MEDS: POLYETHYLENE GLYCOL 3350 POWDER 17 GM/1 PACKET PO SCH (21:39)
[2019-01-11] MEDS: OXYCODONE HCL IR 5 MG TABLET PO SCH ×4 (00:54→17:53)
[2019-01-11] MEDS: OXYCODONE-ACETAMINOPHEN 5-325 MG TABLET PO SCH ×4 (00:54→17:58)
[2019-01-11] MEDS: METHYLPREDNISOLONE INJ 40 MG/1 ML SDV IV SCH ×3 (05:32→21:33)
[2019-01-11 07:48] LABS: ABSOLUTE LYMPHOCYTES (AUTO) 0.7 10^3/uL (0.5-4.7); ABSOLUTE MONOCYTES (AUTO) 0.4 10^3/uL (0.1-1.4); ABSOLUTE NEUT (AUTO) 3.3 10^3/uL (1.7-8.2); BASOPHILS % (AUTO) 0.3 % (0-2); HEMATOCRIT 42.1 % (36.0-47.0); HEMOGLOBIN 13.7 g/dL (12.0-15.5); LYMPHOCYTES % (AUTO) 15.6 % (13-45); MEAN CORPUSCULAR HEMOGLOBIN 30.6 pg (27.0-33.4); MEAN CORPUSCULAR HGB CONC 32.6 g/dL (32.0-36.0); MEAN CORPUSCULAR VOLUME 94 fl (80-97); MONOCYTES % (AUTO) 8.4 % (3-13); PLATELET COUNT 265 10^3/uL (150-450); RED BLOOD COUNT 4.49 10^6/uL (3.72-5.28); RED CELL DISTRIBUTION WIDTH 14.5 % (11.5-14.0); SEGMENTED NEUTROPHILS % (AUTO) 75.7 % (42-78); TOTAL CELLS COUNTED % (AUTO) 100 %; WHITE BLOOD COUNT 4.4 10^3/uL (4.0-10.5)
[2019-01-11 08:14] LABS: ANION GAP 5 (5-19); BLOOD UREA NITROGEN 15 mg/dL (7-20); CALCIUM 9.4 mg/dL (8.4-10.2); CARBON DIOXIDE 31 mmol/L (22-30); CHLORIDE 92 mmol/L (98-107); GLUCOSE 106 mg/dL (75-110); POTASSIUM 4.5 mmol/L (3.6-5.0)
[2019-01-11] MEDS: IPRATROPIUM/ALBUTEROL 0.5-2.5 MG/3 ML AMPUL NEB PRN ×4 (08:18→20:29)
--- NOTE | 2019-01-11 09:46 | RADIOLOGY REPORT (SQ) ---
EXAM DESCRIPTION: CHEST 2 VIEWS COMPLETED DATE/TIME: 01/11/2019 9:34 am REASON FOR STUDY: follow up copd COMPARISON: Chest x-ray and chest CT dated 01/08/2019. EXAM PARAMETERS: NUMBER OF VIEWS: two views TECHNIQUE: Digital Frontal and Lateral radiographic views of the chest acquired. RADIATION DOSE: NA LIMITATIONS: none FINDINGS: LUNGS AND PLEURA: Chronic interstitial changes. Density overlying the mid right lung is d ue to calcification in the anterior soft tissues. No lobar infiltrates. No pleural effusion or pneu mothorax. MEDIASTINUM AND HILAR STRUCTURES: No masses or contour abnormalities. HEART AND VASCULAR STRUCTURES: Heart normal size. No evidence for failure. BONES: No acute findings. Chronic changes in the spine with scoliosis. HARDWARE: Surgical clips in the soft tissues. OTHER: No other significant finding. IMPRESSION: STABLE CHRONIC CHANGES. NO APPARENT ACUTE FINDINGS. TECHNICAL DOCUMENTATION: JOB ID: [id number] [employer]- All Rights Reserved Reading location - IP/workstation name: [email or web address]
[2019-01-11] MEDS: LEVOTHYROXINE SODIUM 0.088 MG TABLET PO SCH (09:55)
[2019-01-11] MEDS: GABAPENTIN 300 MG CAPSULE PO SCH ×2 (09:55→17:58)
[2019-01-11] MEDS: LORAZEPAM 0.5 MG TABLET PO SCH ×4 (09:55→21:34)
[2019-01-11] MEDS: VALACYCLOVIR HCL 500 MG TABLET PO SCH ×2 (09:55→21:33)
[2019-01-11] MEDS: FAMOTIDINE 20 MG TABLET PO SCH ×2 (09:55→21:34)
[2019-01-11] MEDS: NICOTINE 14 MG/24 HR PATCH.TD24 TD SCH (09:56)
[2019-01-11] MEDS: FLUTICASONE/VILANTEROL 200-25 MCG/DOSE IH SCH (09:56)
[2019-01-11] MEDS: LISINOPRIL 10 MG TABLET PO SCH (09:56)
[2019-01-11] MEDS: NAPROXEN 250 MG TABLET PO SCH ×2 (09:57→17:58)
[2019-01-11] MEDS: ENOXAPARIN SODIUM INJ 40 MG/0.4 ML DISP.SYRIN SUBCUT SCH (09:58)
--- NOTE | 2019-01-11 16:12 | PDOC PROGRESS REPORT ---
Subjective Progress Note for:: 01/11/19 Subjective:: 01/09/2019 68-year-old female who was admitted yesterday through the emergency room for COPD exacerbation. No obvious evidence of pneumonia on CT scan of the chest. Nodule appears to be old according to the patient. Patient will be treated with nebulizers steroids and pulmonary toiletry. Also prophylactic antibiotics 01/10/2019 Patient states she is feeling much better less shortness of breath. Daughter in the room admits that she feels like her mother has improved since admission 01/11/2019 Patient is sitting up on the edge of the bed, no oxygen eating breakfast. States she got up walk to the bathroom without the walker or oxygen this morning Reason For Visit: COPDE EXACERBATION,TOBACCO ABUSE,HYPOTHYRODISM Physical Exam Vital Signs: Temp Pulse Resp BP Pulse Ox 98.2 F 105 H 18 142/77 H 92 01/11/19 12:36 01/11/19 15:30 01/11/19 15:30 01/11/19 12:36 01/11/19 15:30 Intake & Output 01/10/19 01/11/19 01/12/19 06:59 06:59 06:59 Intake Total 1981 1082 510 Output Total 1050 Balance 1981 32 510 Weight 51.7 kg 51.4 kg General appearance: PRESENT: no acute distress Respiratory exam: PRESENT: clear to auscultation radha. ABSENT: rales, rhonchi, wheezes Cardiovascular exam: PRESENT: RRR. ABSENT: diastolic murmur, rubs, systolic m urmur Neurological exam: PRESENT: alert, awake, oriented to person, oriented to place, oriented to time, oriented to situation, CN II-XII grossly intact. ABSENT: motor sensory deficit Psychiatric exam: PRESENT: appropriate affect, normal mood, other - Patient in good spirits. ABSENT: homicidal ideation, suicidal ideation Results Laboratory Results: 01/11/19 07:32 01/11/19 07:32 01/11/19 01/11/19 07:32 07:32 WBC 4.4 RBC 4.49 Hgb 13.7 Hct 42.1 MCV 94 MCH 30.6 MCHC 32.6 RDW 14.5 H Plt Count 265 Seg Neutrophils % 75.7 Sodium 128.1 L Potassium 4.5 Chloride 92 L Carbon Dioxide 31 H Anion Gap 5 BUN 15 Creatinine 0.50 L Est GFR ( Amer) > 60 Glucose 106 Calcium 9.4 01/08/19 01/08/19 01/11/19 02:58 06:37 07:32 Troponin I 0.017 0.016 NT-Pro-B Natriuret Pep 2040 H 1040 H Impressions: Chest/Abdomen CTA 01/08/19 00:00 IMPRESSION: 1. No CT evidence to suggest acute or chronic pulmonary embolism, aortic aneurysm or aortic dissection. 2. Remote right mastectomy with fibrotic changes in the lungs as described above. 3. Prominent nonspecific precarinal lymph node measuring approximately 2.4 x 1.2 cm in cross-sectional diameter. Head CT 01/08/19 00:00 IMPRESSION: 1. There is no evidence of acute intracranial pathology. 2. Mild cerebral volume loss with findings compatible with mild chronic microangiopathy. Chest X-Ray 01/11/19 00:00 IMPRESSION: STABLE CHRONIC CHANGES. NO APPARENT ACUTE FINDINGS. Assessment and Plan - Diagnosis (1) Breast cancer Is this a current diagnosis for this admission?: Yes (2) Tobacco abuse Is this a current diagnosis for this admission?: Yes (3) Chronic pain Is this a current diagnosis for this admission?: Yes (4) COPD (chronic obstructive pulmonary disease) Qualifiers: COPD type: COPD with acute exacerbation Qualified Code(s): J44.1 - Chronic obstructive pulmonary disease with (acute) exacerbation Is this a current diagnosis for this admission?: Yes (5) Elevated blood pressure reading Is this a current diagnosis for this admission?: Yes (6) Hypoxia Is this a current diagnosis for this admission?: Yes - Plan Summary Summary: Give patient IV steroids every 8 hours give patient IV antibiotics and try to improve her COPD exacerbation. 01/09/2019 we will order the NicoDerm patch and MiraLAX every night per patient's request. Patient's daughter/caregiver slip in the room last night 01/10/2019 Will walk patient without oxygen to see if she qualifies for home O2. Continue IV steroids and IV antibiotics. IV Zithromax and 40 mg Solu-Medrol every 8 hours We will decrease Solu-Medrol today to just twice daily. Chest x-ray is stable with no acute process. White blood cell count is 4.4 BNP on admission was 2040 BNP today is 1040 Hospital discharge patient home tomorrow on a Medrol Dosepak and p.o. antibiotics as well as a low dose of Lasix - Time Time Spent with patient: 25-34 minutes
[2019-01-11] MEDS: AZITHROMYCIN 500 MG in DEXTROSE 5%-WATER 250 ML IV SCH (17:58)
[2019-01-11] MEDS: POLYETHYLENE GLYCOL 3350 POWDER 17 GM/1 PACKET PO SCH (21:33)
[2019-01-11] MEDS: TRAZODONE HCL 50 MG TABLET PO SCH (21:34)
[2019-01-11] MEDS: ATORVASTATIN CALCIUM 20 MG TABLET PO SCH (21:34)
[2019-01-12] MEDS: OXYCODONE HCL IR 5 MG TABLET PO SCH ×3 (00:26→12:27)
[2019-01-12] MEDS: OXYCODONE-ACETAMINOPHEN 5-325 MG TABLET PO SCH ×3 (00:26→12:30)
[2019-01-12] MEDS: METHYLPREDNISOLONE INJ 40 MG/1 ML SDV IV SCH (09:11)
[2019-01-12] MEDS: VALACYCLOVIR HCL 500 MG TABLET PO SCH (09:11)
[2019-01-12] MEDS: GABAPENTIN 300 MG CAPSULE PO SCH (09:12)
[2019-01-12] MEDS: LORAZEPAM 0.5 MG TABLET PO SCH (09:12)
[2019-01-12] MEDS: LISINOPRIL 10 MG TABLET PO SCH (09:12)
[2019-01-12] MEDS: LEVOTHYROXINE SODIUM 0.088 MG TABLET PO SCH (09:13)
[2019-01-12] MEDS: FAMOTIDINE 20 MG TABLET PO SCH (09:13)
[2019-01-12] MEDS: NICOTINE 14 MG/24 HR PATCH.TD24 TD SCH (09:14)
[2019-01-12] MEDS: NAPROXEN 250 MG TABLET PO SCH (09:16)
[2019-01-12] MEDS: FLUTICASONE/VILANTEROL 200-25 MCG/DOSE IH SCH (09:18)
[2019-01-12] MEDS: ENOXAPARIN SODIUM INJ 40 MG/0.4 ML DISP.SYRIN SUBCUT SCH (09:18)
[2019-01-12 12:05] VITALS: BP 142/67
--- NOTE | 2019-01-12 15:26 | PDOC DISCHARGE SUMMARY ---
Impression - Admit/DC Date/PCP Admission Date/Primary Care Provider: 01/08/19 07:52 BAKARI LOMAS PA-C Discharge Date: 01/12/19 - Discharge Diagnosis (1) Breast cancer Is this a current diagnosis for this admission?: Yes (2) Tobacco abuse Is this a current diagnosis for this admission?: Yes (3) Chronic pain Is this a current diagnosis for this admission?: Yes (4) COPD (chronic obstructive pulmonary disease) Is this a current diagnosis for this admission?: Yes (5) Elevated blood pressure reading Is this a current diagnosis for this admission?: Yes (6) Hypoxia Is this a current diagnosis for this admission?: Yes - Assessment Summary: Give patient IV steroids every 8 hours give patient IV antibiotics and try to improve her COPD exacerbation. 01/09/2019 we will order the NicoDerm patch and MiraLAX every night per patient's request. Patient's daughter/caregiver slip in the room last night 01/10/2019 Will walk patient without oxygen to see if she qualifies for home O2. Continue IV steroids and IV antibiotics. IV Zithromax and 40 mg Solu-Medrol every 8 hours We will decrease Solu-Medrol today to just twice daily. Chest x-ray is stable with no acute process. White blood cell count is 4.4 BNP on admission was 2040 BNP today is 1040 Hospital discharge patient home tomorrow on a Medrol Dosepak and p.o. antibiotics as well as a low dose of Lasix 01/12/2019 SHe was discharged home today in good condition patient was ambulating on room air. She did meet requirements for home O2 with her sat getting down to 86% with ambulation.. Patient also was discharged with PT and OT to come to her house. Wrote a prescription for Medrol Dosepak and Zithromax 250 mg 5 tablets as well as NicoDerm patch. Patient improved dramatically with IV steroids IV antibiotics and IV Lasix, while in the hospital.. - Additional Information Resuscitation Status: Full Code Discharge Diet: As Tolerated Discharge Activity: Balance Activity w/Rest, No Driving, Weigh Daily Referrals: CHIQUI MACHUCA PA-C [[employer] PROFESSIONAL] - 01/17/19 10:00 am ( ) Prescriptions: Methylprednisolone [Medrol Dosepack (4 mg/Tab) 21 Tab/Dosepak] 4 mg PO ASDIR PRN #21 tab.ds.pk PRN Reason: Nicotine [Nicoderm 14 mg/24 Hr Transdermal Patch] 1 each TD DAILY #30 patch.td24 Azithromycin [Zithromax Inj 500 mg Vial] 250 mg IV QPM #5 vial Home Medications: Albuterol Sulfate [Proair HFA Inhalation Aerosol 8.5 gm MDI] 2 puff IH Q4 PRN 01/08/19 Budesonide/Formoterol Fumarate [Symbicort HFA 160-4.5 mcg Inhaler 6 gm] 1 puff IH Q12 01/08/19 Cyclobenzaprine HCl [Flexeril 10 mg Tablet] 10 mg PO TIDP PRN 01/08/19 Gabapentin [Neurontin 300 mg Capsule] 300 mg PO QAM 01/08/19 Gabapentin [Neurontin 300 mg Capsule] 600 mg PO QPM 01/08/19 Levothyroxine Sodium [Synthroid 0.088 mg Tablet] 88 mcg PO DAILY 01/08/19 Lisinopril [Prinivil] 20 mg PO DAILY 01/08/19 Lorazepam [Ativan 0.5 mg Tablet] 0.5 mg PO QID 01/08/19 Naproxen 500 mg PO BID 01/08/19 Omeprazole 20 mg PO DAILY 01/08/19 Oxycodone HCl/Acetaminophen [Percocet 10-325 mg Tablet] 1 each PO QID 01/08/19 Pravastatin Sodium [Pravachol] 80 mg PO DAILY 01/08/19 Trazodone HCl [Desyrel 50 mg Tablet] 50 mg PO QHS 01/08/19 Valacyclovir HCl [Valacyclovir] 1,000 mg PO Q12 01/08/19 Azithromycin [Zithromax Inj 500 mg Vial] 250 mg IV QPM #5 vial 01/12/19 Methylprednisolone [Medrol Dosepack (4 mg/Tab) 21 Tab/Dosepak] 4 mg PO ASDIR PRN #21 tab.ds.pk 01/12/19 Nicotine [Nicoderm 14 mg/24 Hr Transdermal Patch] 1 each TD DAILY #30 patch.td24 01/12/19 Polyethylene Glycol 3350 [Miralax Powder 17 gm/Packet] 17 gm PO QHS powd.pack 01/12/19 History of Present Illiness History of Present Illness: JOLIE GARCIA is a 68 year old female was admitted through the emergency room for shortness of breath. Patient states that she has had COPD for about 2 years and continues to smoke cigarettes, anywhere from a half a pack to a pack per day. Daughter tells me she has been taking pain medications now for many years, for chronic back pain. Recently in the last week to 10 days she was put on Cipro for sinus infection. She says that for the last few days she has been more short of breath. About 20 years ago she was diagnosed with breast cancer and had a right mastectomy.. Patient states she is a "DNR" Is now admitted for COPD exacerbation Physical Exam Vital Signs: Temp Pulse Resp BP Pulse Ox 97.7 F 100 20 142/67 H 97 01/12/19 11:56 01/12/19 11:56 01/12/19 11:56 01/12/19 11:56 01/12/19 11:56 Intake & Output 01/11/19 01/12/19 01/13/19 06:59 06:59 06:59 Intake Total 1082 1330 240 Output Total 1050 Balance 32 1330 240 Weight 51.4 kg 53.4 kg Results Laboratory Results: WBC 4.4 10^3/uL (4.0-10.5) 01/11/19 07:32 RBC 4.49 10^6/uL (3.72-5.28) 01/11/19 07:32 Hgb 13.7 g/dL (12.0-15.5) 01/11/19 07:32 Hct 42.1 % (36.0-47.0) 01/11/19 07:32 MCV 94 fl (80-97) 01/11/19 07:32 MCH 30.6 pg (27.0-33.4) 01/11/19 07:32 MCHC 32.6 g/dL (32.0-36.0) 01/11/19 07:32 RDW 14.5 % (11.5-14.0) H 01/11/19 07:32 Plt Count 265 10^3/uL (150-450) 01/11/19 07:32 Lymph % (Auto) 15.6 % (13-45) 01/11/19 07:32 [place] % (Auto) 8.4 % (3-13) 01/11/19 07:32 Eos % (Auto) 0.0 % (0-6) 01/11/19 07:32 Baso % (Auto) 0.3 % (0-2) 01/11/19 07:32 Absolute Neuts (auto) 3.3 10^3/uL (1.7-8.2) 01/11/19 07:32 Absolute Lymphs (auto) 0.7 10^3/uL (0.5-4.7) 01/11/19 07:32 Absolute Monos (auto) 0.4 10^3/uL (0.1-1.4) 01/11/19 07:32 Absolute Eos (auto) 0.0 10^3/uL (0.0-0.6) 01/11/19 07:32 Absolute Basos (auto) 0.0 10^3/uL (0.0-0.2) 01/11/19 07:32 Total Counted 100 01/09/19 07:05 Seg Neutrophils % 75.7 % (42-78) 01/11/19 07:32 Seg Neuts % (Manual) 85 % (42-78) H 01/09/19 07:05 Lymphocytes % (Manual) 10 % (13-45) L 01/09/19 07:05 Monocytes % (Manual) 5 % (3-13) 01/09/19 07:05 Eosinophils % (Manual) 0 % (0-6) 01/09/19 07:05 Basophils % (Manual) 0 % (0-2) 01/09/19 07:05 Abs Neuts (Manual) 5.1 10^3/uL (1.7-8.2) 01/09/19 07:05 Abs Lymphs (Manual) 0.6 10^3/uL (0.5-4.7) 01/09/19 07:05 Abs Monocytes (Manual) 0.3 10^3/uL (0.1-1.4) 01/09/19 07:05 Absolute Eos (Manual) 0.0 10^3/uL (0.0-0.6) 01/09/19 07:05 Abs Basophils (Manual) 0.0 10^3/uL (0.0-0.2) 01/09/19 07:05 Large Platelets PRESENT 01/09/19 07:05 Platelet Comment ADEQUATE 01/09/19 07:05 Anisocytosis SLIGHT 01/09/19 07:05 Ovalocytes SLIGHT 01/09/19 07:05 Carbonic Acid 1.35 mmol/L (1.05-1.35) 01/08/19 05:08 HCO3/H2CO3 Ratio 21:1 01/08/19 05:08 ABG pH 7.43 (7.35-7.45) 01/08/19 05:08 ABG pCO2 45.0 mmHg (35-45) 01/08/19 05:08 ABG pO2 69.4 mmHg (80-100) L 01/08/19 05:08 ABG HCO3 29.0 mmol/L (20-24) H 01/08/19 05:08 ABG Total CO2 30.4 mmol/L (21-25) H 01/08/19 05:08 ABG O2 Saturation 94.2 % (94-98) 01/08/19 05:08 ABG Base Excess 3.9 mmol/L 01/08/19 05:08 FiO2 RA 01/08/19 05:08 Sodium 128.1 mmol/L (137-145) L 01/11/19 07:32 Potassium 4.5 mmol/L (3.6-5.0) 01/11/19 07:32 Chloride 92 mmol/L (98-107) L 01/11/19 07:32 Carbon Dioxide 31 mmol/L (22-30) H 01/11/19 07:32 Anion Gap 5 (5-19) 01/11/19 07:32 BUN 15 mg/dL (7-20) 01/11/19 07:32 Creatinine 0.50 mg/dL (0.52-1.25) L 01/11/19 07:32 Est GFR ( Amer) > 60 (>60) 01/11/19 07:32 Est GFR (Non-Af Amer) Cancelled 01/09/19 07:05 Est GFR (MDRD) Non-Af > 60 (>60) 01/11/19 07:32 Glucose 106 mg/dL (75-110) 01/11/19 07:32 Lactic Acid 0.5 mmol/L (0.7-2.1) L 01/08/19 05:19 Calcium 9.4 mg/dL (8.4-10.2) 01/11/19 07:32 Total Bilirubin 0.3 mg/dL (0.2-1.3) 01/08/19 02:58 Direct Bilirubin 0.3 mg/dL (0.0-0.4) 01/08/19 02:58 Neonat Total Bilirubin Not Reportable 01/08/19 02:58 Neonat Direct Bilirubin Not Reportable 01/08/19 02:58 Neonat Indirect Bili Not Reportable 01/08/19 02:58 AST 37 U/L (14-36) H 01/08/19 02:58 ALT 22 U/L (<35) 01/08/19 02:58 Alkaline Phosphatase 62 U/L (38-126) 01/08/19 02:58 Troponin I 0.016 ng/mL 01/08/19 06:37 NT-Pro-B Natriuret Pep 1040 pg/mL (5-900) H 01/11/19 07:32 Total Protein 7.1 g/dL (6.3-8.2) 01/08/19 02:58 Albumin 4.4 g/dL (3.5-5.0) 01/08/19 02:58 Lipase 16.5 U/L (23-300) L 01/08/19 02:58 EGFR Cancelled 01/09/19 07:05 Free T4 1.50 ng/dL (0.78-2.19) 01/08/19 02:58 01/08/19 01/08/19 01/11/19 02:58 06:37 07:32 Troponin I 0.017 0.016 NT-Pro-B Natriuret Pep 2040 H 1040 H Impressions: Chest X-Ray 01/08/19 00:00 IMPRESSION: Clear lungs. Chest/Abdomen CTA 01/08/19 00:00 IMPRESSION: 1. No CT evidence to suggest acute or chronic pulmonary embolism, aortic aneurysm or aortic dissection. 2. Remote right mastectomy with fibrotic changes in the lungs as described above. 3. Prominent nonspecific precarinal lymph node measuring approximately 2.4 x 1.2 cm in cross-sectional diameter. Head CT 01/08/19 00:00 IMPRESSION: 1. There is no evidence of acute intracranial pathology. 2. Mild cerebral volume loss with findings compatible with mild chronic microangiopathy. Chest X-Ray 01/11/19 00:00 IMPRESSION: STABLE CHRONIC CHANGES. NO APPARENT ACUTE FINDINGS. Stroke Is this a Stroke Patient?: No Acute Heart Failure - Is this a Heart Failure Patient?: No
== END 2019-01-12 13:32 | disposition home health service (06) | DRG 192 ==
LOC: ER 03:35 → EH 07:52 → 4N 09:43
PROVIDERS: ADMIT Hospitalist; ATTEND Hospitalist
DX: J44.1 Chronic obstructive pulmonary disease with (acute) exacerbation (principal); E03.9 Hypothyroidism, unspecified; E78.5 Hyperlipidemia, unspecified; I10 Essential (primary) hypertension; G89.29 Other chronic pain; R09.02 Hypoxemia; R03.0 Elevated blood-pressure reading, without diagnosis of hypertension; Z66 Do not resuscitate; Z85.3 Personal history of malignant neoplasm of breast; Z99.81 Dependence on supplemental oxygen; Z79.899 Other long term (current) drug therapy; Z79.890 Hormone replacement therapy; Z90.11 Acquired absence of right breast and nipple; Z88.0 Allergy status to penicillin; Z88.2 Allergy status to sulfonamides; Z91.040 Latex allergy status
CPT/HCPCS: 36415; 70450; 71045; 71046; 71275; 80048; 80053; 82803; 83605; 83690; 83880; 84439; 84484; 85025; 87040; 93005; 93010; 94640; 96374; 99291; J0456; J2920; J2930; J3490; J7060; J7620